=== PATIENT | female | born 1950 | race Two or more races ===

== ENCOUNTER 2019-10-06 06:25 | Day surgery (SDC) | payer OTHER | END 2019-10-06 11:35 | disposition home or self-care (01) | LOC: AMB-ENDOS 06:25 | DX: D12.5 Benign neoplasm of sigmoid colon (principal); D12.3 Benign neoplasm of transverse colon; K57.30 Diverticulosis of large intestine without perforation or abscess without bleeding; K64.1 Second degree hemorrhoids ==

== ENCOUNTER 2020-11-15 07:56 | Day surgery (SDC) | payer OTHER | END 2020-11-15 13:15 | disposition home or self-care (01) | LOC: AMB-ENDOS 07:56 | PROVIDERS: ATTEND Colon & Rectal Surgery | DX: K62.89 Other specified diseases of anus and rectum (principal); K64.0 First degree hemorrhoids; Z20.822 Contact with and (suspected) exposure to COVID-19 ==